=== PATIENT | male | born 1950 | race Caucasian/White ===

== ENCOUNTER → 2016-11-20 19:35 | Outpatient (CLI) | payer MEDICARE, BC ==
[2016-05-06 09:19] VITALS: BMI 40.3
[~2016-11-20 19:35] MED LIST: BAYER CHEWABLE81 MG PO; CELEXA20 MG PO; COUMADIN10 MG PO; FUROSEMIDE20 MG PO; NORVASC10 MG PO; OMEPRAZOLE40 MG PO; PRINIVIL20 MG PO; ZOCOR40 MG PO; ZYLOPRIM300 MG PO
[2016-11-20 19:48] LABS: INR 1.66 (0.85-1.17); PROTIME 19.6 SECONDS (11.6-15.0)
== END | disposition home or self-care (01) ==
LOC: D.LABREF 19:35
PROVIDERS: Family Medicine
DX: I82.501 Chronic embolism and thrombosis of unspecified deep veins of right lower extremity (principal)

== ENCOUNTER → 2016-12-09 18:20 | Outpatient (CLI) | payer MEDICARE, BC ==
[2016-05-06 09:19] VITALS: BMI 40.3
[2016-12-09 19:41] LABS: INR 1.49 (0.85-1.17)
== END | disposition home or self-care (01) ==
LOC: D.LABREF 18:20
PROVIDERS: Family Medicine
DX: Z51.81 Encounter for therapeutic drug level monitoring (principal); Z79.01 Long term (current) use of anticoagulants

== ENCOUNTER → 2017-01-06 17:39 | Outpatient (CLI) | payer MEDICARE ==
[2016-05-06 09:19] VITALS: BMI 40.3
[2017-01-06 18:42] LABS: INR 1.56 (0.85-1.17); PROTIME 18.6 SECONDS (11.6-15.0)
== END | disposition home or self-care (01) ==
LOC: D.LAB 17:39
PROVIDERS: Family Medicine
DX: I82.501 Chronic embolism and thrombosis of unspecified deep veins of right lower extremity (principal)

== ENCOUNTER → 2017-01-16 14:59 | Outpatient (CLI) | payer MEDICARE ==
[2016-05-06 09:19] VITALS: BMI 40.3
[2017-01-16 16:07] LABS: INR 2.08 (0.85-1.17); PROTIME 23.5 SECONDS (11.6-15.0)
== END | disposition home or self-care (01) ==
LOC: D.LABREF 14:59
PROVIDERS: Family Medicine
DX: Z79.01 Long term (current) use of anticoagulants (principal); Z51.81 Encounter for therapeutic drug level monitoring

== ENCOUNTER 2017-11-26 06:38 | Outpatient (CLI) | payer MEDICARE ==
[~2017-11-26] VITALS: Ht 172.7 cm; Wt 115.0 kg
--- NOTE | ~2017-11-26 | HEMODYNAMI ---
PATIENT:PATRICK CALLAWAY MEDICAL RECORD: [id number] : 50 LOCATION:[facility] ADMISSION DATE: 11/26/17 Generatedon:11/26/20179:37 Patient name: PATRICK CALLAWAY Patient #: [id number] SSN: : 1950 Date of study: 11/26/2017 Page: Of Hemodynamic Procedure Report Patient Data Patient Demographics Procedure consent was obtained First Name: PATRICK Gender: Male Last Name: CESIA : 1950 Middle Initial: D Age: 67 year(s) Patient #: [id number] Race: Unknown Additional ID: [id number] Contact details Address: [address] [place] [address] State: [place] City: [facility] Zip code: [address] Past Medical History Allergies: No known allergies Admission Admission Data Admission Date: 11/26/2017 Admission Time: 6:38 Weight (lbs.): 258 Weight (kg.): 117.03 Lab Results Lab Result Date: 11/26/2017 Lab Result Time: 0:00 Biochemistry Name Units Result Min Max BUN mg/dl 23 --(----)-* 7 18 Creatinine mg/dl 1.2 --(---*)-- 0.6 1.3 CBC Name Units Result Min Max Hemoglobin g/dl 13.6 --(*---)-- 13.5 17.5 Procedure Procedure Types Cath Procedure Diagnostic Procedure [facility] w/Coronaries Miscellaneous Procedures Moderate Sedation up to 30 minutes Peripheral Cath Diagnostic Procedure Cath Peripheral Renal Arteriogram Procedure Description Procedure Date Procedure Date: 11/26/2017 Procedure Start Time: 9:19 Procedure End Time: 9:36 Procedure Staff Name Function Zi Ramirez MD Performing Physician Donna Shah RT Monitor Marquise Claros RT Scrub Ever Marie RN Nurse Keeley Schwab RN Nurse Ventura Lucas RN Desktop Support Associate Procedure Data Cath Procedure Fluoroscopy Diagnostic fluoroscopy Total fluoroscopy Time: 4.8 time: 4.8 min min Diagnostic fluoroscopy Total fluoroscopy dose: 991 dose: 991 mGy mGy Contrast Material Contrast Material Type Amount (ml) Isovue 300 123 Entry Location Entry Primary Successful Side Size Upsize Upsize Entry Closure Succes sful Closure Location (Fr) 1 (Fr) 2 (Fr) Remarks Device Remarks Femoral Right 5 Fr Exoseal artery Estimated blood loss: 5 ml Diagnostic catheters Device Type Used For End Catheter Placement MULTIPACK JL 4.0 5Fr Procedure catheter MULTIPACK 3DRC 5Fr Procedure catheter DIAGNOSTIC JR 4 5Fr Renal catheter ([id number]) arteriography with flush -selective MULTIPACK Pigtail 5 Fr Procedure catheter Procedure Complications No complications Procedure Medications Medication Administration Route Dosage 0.9% NaCl I.V. 100 ml/hr Oxygen NC 2 l/min Lidocaine 2% added to field 20 Heparin Flush Bag added to field 2 bags (1000units/500ml NS) Fentanyl I.V. 100 mcg Versed I.V. 1 mg Fentanyl I.V. 50 mcg Versed I.V. 1 mg Fentanyl I.V. 50 mcg Versed I.V. 1 mg Hemodynamics Rest HGB: 13.6 (g/dl) Heart Rate: 51 (bpm) Pressure Samples Time Site Value (mmHg) Purpose Heart Use Rate(bpm) 9:30 LV 157/6,20 Snapshot 76 Gradients Valve Time Site Site Mean SEP/DFP Peak To Heart Use 1 2 (mmHg) (sec/min) Peak Rate (mmHg) (bpm) Aortic 9:31 LV AO 62 Snapshots Pre Cath Intra NCS Post Cath Vital Signs Time Heart Resp SPO2 etCO2 NIBP (mmHg) Rhythm Pain Sedation Rate (ipm) (%) (mmHg) Status Level (bpm) 9:09:35 48 15 99 41.7 171/88(140) NSR 0 (11) 10(A) , No pain 9:14:24 54 16 98 40.9 158/87(127) NSR 0 (11) 10(A) , No pain 9:19:08 57 16 95 40.9 143/85(128) NSR 0 (11) 9(A) , No pain 9:24:30 59 16 96 43.2 150/84(121) NSR 0 (11) 9(A) , No pain 9:29:19 61 19 96 42.4 155/85(109) NSR 0 (11) 9(A) , No pain 9:34:03 60 16 95 40.9 136/84(121) NSR 0 (11) 10(A) , No pain Medications Time Medication Route Dose Verified Delivered Reason Notes Effec tiveness by by 9:06:51 0.9% NaCl I.V. 100 Zi Keeley used for ml/hr James Schwab RN procedure 9:07:02 Oxygen NC 2 Zi Keeley Per l/min James Schwab RN physician 9:07:12 Lidocaine 2% added 20ml Zi Zi for local to vial James Ramirez MD anesthetic field 9:07:21 Heparin Flush added 2 Zi Zi used for Bag to bags James Ramirez MD procedure (1000units/500ml field NS) 9:14:31 Fentanyl I.V. 100 Zi Keeley for mcg James Schwab RN sedation 9:14:43 Versed I.V. 1 mg Zi Keeley for James Schwab RN sedation 9:16:22 Fentanyl I.V. 50 Zi Keeley for mcg James Schwab RN sedation 9:16:30 Versed I.V. 1 mg Zi Keeley for James Schwab RN sedation 9:30:37 Fentanyl I.V. 50 Zi Keeley for mcg James Schwab RN sedation 9:31:35 Versed I.V. 1 mg Zi Keeley for James Schwab RN sedation Procedure Log Time Note 8:46:37 Ventura Lucas RN sent for patient. Start room use. 8:46:38 Time tracking: Regular hours 8:46:42 Plan of Care:Hemodynamics will remain stable., Cardiac rhythm will remain stable., Comfort level will be maintained., Respiratory function will remain adequate., Patient/ family verbilizes understanding of procedure., Procedure tolerated without complication., Recovers from procedure without complications.. 8:52:01 H&P Date Dictated: 10/30/2017 Within 30 days and on chart., H&P Addendum completed by physician on day of procedure. (MUST COMPLETE FOR ALL OUTPATIENTS). 8:52:19 Patient Weight : 258 lbs 9:00:48 Patient received from Pre/Post Procedure Room to [facility] 1 Alert and oriented. Tansferred to table in Supine position. 9:00:50 Warm blankets applied, and anthony hugger turned on for patient comfort. 9:00:50 Correct patient and procedure confirmed by team. 9:00:52 Signed procedure consent form obtained from patient. 9:00:53 ECG and BP/O2 sat monitors applied to patient. 9:06:04 Vital chart was started 9:06:51 0.9% NaCl 100 ml/hr I.V. was administered by Keeley Schwab RN; used for procedure; 9:07:02 Oxygen 2 l/min NC was administered by Keeley Schwab RN; Per physician; 9:07:12 Lidocaine 2% 20ml vial added to field was administered by Zi Ramirez MD; for local anesthetic; 9:07:21 Heparin Flush Bag (1000units/500ml NS) 2 bags added to field was administered by Zi Ramirez MD; used for procedure; 9:11:33 Baseline sample Acquired. 9:11:38 Rhythm: sinus bradycardia 9:11:39 Full Disclosure recording started 9:11:40 Pre-procedure instructions explained to patient. 9:11:41 Pre-op teaching completed and patient verbalized understanding. 9:11:42 Family in patients room. 9:11:44 Patient NPO since Midnight. 9:11:51 Patient allergic to No known allergies 9:11:53 Is the patient allergic to Iodine/contrast media? No. 9:11:54 Is patient on blood thinner?Yes 9:11:58 ACC The patient was administered the following blood thiners within the last 24 hours: Eliquis 9:12:01 Patient diabetic? No. 9:12:05 Previous problem with sedation/anesthesia? No ? 9:12:05 Snore? Yes 9:12:06 Sleep apnea? Yes 9:12:08 Deviated septum? No 9:12:08 Opens mouth fully? Yes 9:12:09 Sticks out tongue? Yes 9:12:11 Airway obstruction? No ? 9:12:13 Dentures? No ? 9:12:17 Pre procedure: right dorsailis pedis pulse 2+ Normal; easily identifiable; not easily obliterated 9:12:56 Patient pain scale 0/10 ?. 9:13:01 IV patent on arrival in right forearm with 0.9% NaCl at [facility]. 9:13:11 Right groin area was prepped with chlora-prep and draped in sterile fashion 9:13:14 Alarms reviewed by R. N. 9:13:14 Sharps counted by scrub and verified by R.N. 9:13:15 --------ALL STOP TIME OUT------ 9:13:15 Final Timeout: patient, procedure, and site verified with staff and physician. All members of the team are in agreement. 9:13:17 Right groin site verified by team. 9:13:25 Physical assessment completed. ASA score P 2 - A patient with mild systemic disease as per Zi Ramirez MD. 9:13:28 Sedation plan: IV Moderate Sedation Medication:Versed, Fentanyl 9:14:31 Fentanyl 100 mcg I.V. was administered by Keeley Schwab RN; for sedation; 9:14:43 Versed 1 mg I.V. was administered by Keeley Schwab RN; for sedation; 9:14:44 Use device set Femoral Dx 9:14:45 ACIST Syringe (28571) opened to sterile field. 9:14:48 ACIST Hand Control (51160) opened to sterile field. 9:14:49 ACIST Manifold (11621) opened to sterile field. 9:14:51 Tegaderm 4 x 4 (1626W) opened to sterile field. 9:14:52 Bag Decanter (2002S) opened to sterile field. 9:14:53 Medline Cath Pack ([id number]) opened to sterile field. 9:14:53 SHEATH 5FR [place] (CPC029) opened to sterile field. 9:14:54 DIAGNOSTIC WIRE .035 260cm J wire (310923) opened to sterile field. 9:14:55 DIAGNOSTIC Multipack 5Fr catheter set (HV3498) opened to sterile field. 9:14:56 PERCUTANEOUS ENTRY 19GA needle opened to sterile field. 9:16:22 Fentanyl 50 mcg I.V. was administered by Keeley Schwab RN; for sedation; 9:16:30 Versed 1 mg I.V. was administered by Keeley Schwab RN; for sedation; 9:16:42 Lab Result : BUN 23 mg/dl 9:16:42 Lab Result : Creatinine 1.2 mg/dl 9:16:42 Lab Result : Hemoglobin 13.6 g/dl 9:16:45 Lab results completed and on chart. 9:18:51 Zero performed for pressure channel P1 9:19:09 Procedure started. 9:19:51 Local anesthetic to right femoral artery with Lidocaine 2% by Zi Ramirez MD.INITIAL ACCESS ONLY 9:20:37 A 5 Fr sheath was inserted into the Right Femoral artery 9:21:19 A MULTIPACK JL 4.0 5Fr catheter was advanced over the wire and used for Procedure. 9:22:32 LCA angiography performed. 9:23:27 Catheter removed. 9:23:59 A MULTIPACK 3DRC 5Fr catheter was advanced over the wire and used for Procedure. 9:24:58 RCA angiography performed. 9:26:07 Catheter removed. 9:30:28 A DIAGNOSTIC JR 4 5Fr catheter ([id number]) was advanced over the wire and used for Renal arteriography with flush -selective. 9:30:35 Catheter removed. 9:30:37 Fentanyl 50 mcg I.V. was administered by Keeley Schwab RN; for sedation; 9:30:45 A MULTIPACK Pigtail 5 Fr catheter was advanced over the wire and used for Procedure. 9:31:07 Injector settings: Ml/sec: 10, Volume: 20, 9:31:26 LV gram done using LARKIN 9:31:27 LV hemodynamics recorded. 9:31:31 EF : 55 % 9:31:35 Versed 1 mg I.V. was administered by Keeley Schwab RN; for sedation; 9:31:41 Catheter removed. 9:31:58 EXOSEAL 5Fr (EX500) opened to sterile field. 9:32:39 Sheath removed intact; hemostasis achieved with Exoseal to the Right Femoral artery. 9:32:42 Procedure ended.(Physican Out) 9:32:59 Fluoroscopy time 04.80 minutes. 9:33:03 Fluoroscopy dose: 991 mGy 9:33:03 Flurop Dose total: 991 9:33:07 Contrast amount:Isovue 300 123ml. 9:33:08 Sharps counted by scrub and verified by R.N. 9:33:35 Insertion/operative site no bleeding no hematoma. 9:34:08 Post-op/insertion site Right Femoral artery dressed using a 4 x 4 and Tegaderm. 9:34:12 Post right femoral artery:stable, soft, clean and dry 9:34:15 Post procedure: right dorsailis pedis pulse 2+ Normal; easily identifiable; not easily obliterated. 9:34:18 Post-procedure physical assessment completed. ASA score P 2 - A patient with mild systemic disease as per Zi Ramirez MD. 9:34:28 Post procedure rhythm: unchanged. 9:34:30 Estimated blood loss: 5 ml 9:34:37 Post procedure instruction explained to patient.Patient verbalizes understanding. 9:34:38 Patient needs reinforcement of post procedure teaching. 9:35:22 Procedure type changed to Cath procedure, Diagnostic procedure, LHC, LHC w/Coronaries, Miscellaneous Procedures, Moderate Sedation up to 30 minutes, Peripheral Cath Diagnostic Procedure, Cath Peripheral, Renal Arteriogram 9:36:23 Procedure and supply charges have been captured, reviewed, submitted and are correct. 9:36:26 Procedure Complication : No complications 9:36:28 Vital chart was stopped 9:36:29 See physician's report for complete and final results. 9:36:30 Report given to Pre/Post Procedure Room. 9:36:33 Patient transfered to Pre/Post Procedure Room with Bed. 9:36:35 Procedure ended. 9:36:35 Full Disclosure recording stopped 9:36:41 End room use (Document Last) Device Usage Item Name Manufacture Quantity Catalog Hospital Part Current Minimal Lot# / Number Charge Number Stock Stock Serial# Code ACIST Acist 1 40439 807402 530115 174052 20 Syringe Medical (63116) Systems Inc ACIST Hand Acist 1 57364 230613 704452 395931 5 Control Medical (58990) Systems Inc ACIST Acist 1 80462 551320 756783 722705 5 Manifold Medical (35134) Systems Inc Tegaderm 4 x 3M 1 1626W 080369 241353 850191 5 4 (1626W) Bag Decanter Microtek 1 2001S 401320 00753 139117 5 (2001S) Medical Inc. Medline Cath Cardinal 1 [id number] 806314 73657 972467 5 [facility] ([id number]) SHEATH 5FR Terumo 1 RBH771 673124 282683 993453 40 [place] (YUE292) DIAGNOSTIC St [place] 1 909978 965486 089571 759649 30 WIRE .035 260cm J wire (443366) DIAGNOSTIC Cardinal 1 KZ6776 143669 11637 037400 30 Multipack Health 5Fr catheter set (HS3381) PERCUTANEOUS [employer] 1 E72535 106481 425899 5 ENTRY 19GA needle MULTIPACK JL Cardinal 1 366160 5 4.0 5Fr Health catheter MULTIPACK Cardinal 1 742390 5 3DRC 5Fr Health catheter DIAGNOSTIC Cardinal 1 [id number] 771962 931254 600050 5 JR 4 5Fr Health catheter ([id number]) MULTIPACK Cardinal 1 809139 5 Pigtail 5 Fr Health catheter EXOSEAL 5Fr Cardinal 1 EX500 286420 652857 883898 10 (EX500) Health Signature Audit [place] Stage Time Signature Unsigned Intra-Procedure 11/26/2017 Donna Shha 9:36:56 AM RT(R) Signatures Monitor : Donna Shah Signature : RT Date : Time : [place] [address] [place] [address]
[2017-11-26] MEDS ORDERED: ELIQUIS2.5 MG PO (06:57)
[2017-11-26] MEDS ORDERED: CELEBREX200 MG PO (06:58)
[2017-11-26] MEDS ORDERED: HYDROCHLOROTH12.5 M1 PO (06:59)
[2017-11-26] MEDS ORDERED: LYRICA50 MG PO (07:00)
[2017-11-26] MEDS ORDERED: CATAPRES0.1 MG PO (07:01)
[2017-11-26 07:24] VITALS: BP 146/74; Ht 172.7 cm; Wt 115.0 kg
[2017-11-26 07:34] LABS: ANION GAP 13.9 mmol/L (8-16); CALCIUM 8.9 mg/dL (8.5-10.1); CARBON DIOXIDE 28.6 mmol/L (21.0-32.0); CREATININE - SERUM 1.2 mg/dL (0.6-1.3); POTASSIUM - SERUM 4.5 mmol/L (3.5-5.1)
[2017-11-26 07:35] LABS: HEMATOCRIT 40.5 % (42.0-54.0); HEMOGLOBIN 13.6 g/dL (13.5-17.5); LYMPHOCYTES 18.5 % (15-50); MCH 30.2 pg (26.0-34.0); MCHC 33.6 g/dL (31.0-37.0); MCV 89.8 fL (80.0-100.0); MEAN PLATELET VOLUME 10.7 fL (7.4-10.4); NEUTROPHILS 69.4 % (40-80); PLATELET COUNT 198 10x3/uL (130-400); RBC 4.51 10x6/uL (4.20-6.10); RDW 13.5 % (11.5-14.5); WBC 6.5 10x3/uL (4.8-10.8)
== END 2017-11-26 12:05 | disposition home or self-care (01) ==
LOC: D.CATH 06:38
PROVIDERS: Internal Medicine Cardiovascular Disease
DX: I20.9 Angina pectoris, unspecified (principal); R94.39 Abnormal result of other cardiovascular function study; I15.0 Renovascular hypertension; Z01.812 Encounter for preprocedural laboratory examination

== ENCOUNTER 2018-03-03 10:57 | Outpatient (CLI) | payer MEDICARE ==
[~2018-03-03] VITALS: Ht 172.7 cm; Wt 113.6 kg
[~2018-03-03 10:57] MED LIST changes: +CATAPRES0.1 MG PO; +CELEBREX200 MG PO; +ELIQUIS2.5 MG PO; +HYDROCHLOROTH12.5 M1 PO; +LYRICA50 MG PO
[2018-03-03] MEDS ORDERED: ZESTRIL40 MG PO (11:47)
[2018-03-03 11:48] VITALS: BP 212/87; Ht 172.7 cm; Wt 113.6 kg
[2018-03-03] MEDS ORDERED: NORMODYNE / TR300 MG PO (11:50)
[2018-03-03] MEDS ORDERED: LYRICA50 MG PO (11:51)
[2018-03-03 11:54] LABS: BASOPHILS 0.4 % (0-2); EOSINOPHILS 3.5 % (0-7); HEMATOCRIT 37.9 % (42.0-54.0); HEMOGLOBIN 12.5 g/dL (13.5-17.5); IMMATURE GRANULOCYTES 0.2 % (0-5); LYMPHOCYTES 17.6 % (15-50); MCH 30.3 pg (26.0-34.0); MEAN PLATELET VOLUME 11.1 fL (7.4-10.4); MONOCYTES 7.8 % (2-11); NEUTROPHILS 70.5 % (40-80); PLATELET COUNT 197 10x3/uL (130-400); RBC 4.12 10x6/uL (4.20-6.10); RDW 14.4 % (11.5-14.5); WBC 5.7 10x3/uL (4.8-10.8)
[2018-03-03 12:12] LABS: ANION GAP 11.8 mmol/L (8-16); CALCIUM 8.4 mg/dL (8.5-10.1); CARBON DIOXIDE 28.7 mmol/L (21.0-32.0); CREATININE - SERUM 1.2 mg/dL (0.6-1.3); POTASSIUM - SERUM 4.5 mmol/L (3.5-5.1)
== END 2018-03-03 12:49 | disposition home or self-care (01) ==
LOC: D.CATH 10:57
PROVIDERS: Internal Medicine Cardiovascular Disease
DX: I10 Essential (primary) hypertension (principal); Z01.810 Encounter for preprocedural cardiovascular examination; Z01.811 Encounter for preprocedural respiratory examination; Z01.812 Encounter for preprocedural laboratory examination; Z53.9 Procedure and treatment not carried out, unspecified reason